=== PATIENT | male | born 1955 | race African-American/Black ===

== ENCOUNTER 2018-03-24 00:16 | Inpatient (IN) | payer MEDICARE, MEDICAID ==
[~2018-03-24] VITALS: Ht 185.4 cm; Wt 100.7 kg
[2018-03-24] VITALS (7 sets, daily range): BP systolic 112–129; BP diastolic 72–85
[~2018-03-24 00:16] MED LIST: Risperdal; ZOLOFT; [UNRECOGNIZED DRUG - CODE] PO; [UNRECOGNIZED DRUG - OTHER]
[2018-03-24] MEDS ORDERED: LORAZEPAM 2MG/ML CPJ IV ONE (00:30)
[2018-03-24 01:01] LABS: BG BASE EXCESS -2.7 mmol/L (-2.0-2.0); BG BILEVEL POS AIRWAY PRESSURE 15/5; BG CARBOXYHEMOGLOBIN 0.9 % (0.5-1.5); BG DEOXYHEMOGLOBIN 0.3 % (0.0-5.0); BG FRACTION INSPIRED OXYGEN 100; BG HCO3 ACT 23.5 mmol/L (22.0-26.0); BG METHEMOGLOBIN 0.5 % (0.0-1.5); BG OXYGEN SATURATION 99.7 % (92.0-98.5); BG OXYHEMOGLOBIN 98.3 % (94.0-97.0); BG PCO2 46.3 mmHg (35.0-45.0); BG PH 7.323 (7.350-7.450); BG PO2 360.1 mmHg (75.0-100.0); BG SAMPLE SITE LEFT RADIAL; BG TOTAL HEMOGLOBIN 13.2 g/dL (12.0-18.0); BG VENT MODE MASK - BIPAP; BG VENT RATE 20 set
[2018-03-24 02:07] LABS: BASOPHILS % 0.5 % (0.0-2.0); EOSINOPHILS % 0.9 % (0.0-5.0); HEMATOCRIT. 39.5 % (42.0-52.0); HEMOGLOBIN. 12.3 g/dL (14.0-18.0); MEAN CORPUSCULAR HEMOGLOBIN 22.5 pg (28.0-32.0); MEAN CORPUSCULAR VOLUME 72.4 fL (80.0-94.0); MEAN PLATELET VOLUME 8.1 fl (7.4-10.4); MONOCYTES % 5.5 % (2.0-8.0); NEUTROPHILS % 70.1 % (40.0-76.0); PLATELET 311 x1000/uL (130-400); RED BLOOD CELL COUNT 5.45 mill/uL (4.7-6.1); RED CELL DISTRIBUTION WIDTH 16.3 % (11.6-14.6)
[2018-03-24 02:13] LABS: PROTHROMBIN TIME 10.1 sec (9.1-11.1)
[2018-03-24 02:19] LABS: CHLORIDE 104 mEq/L (98-107)
[2018-03-24] MEDS ORDERED: FUROSEMIDE 40MG/4ML VIAL IVP ONE (02:45)
[2018-03-24 03:22] LABS: CLARITY URINE CLEAR (CLEAR); COLOR URINE YELLOW (YELLOW); KETONES URINE NEGATIVE (NEGATIVE); LEUKOCYTE ESTERASE URINE NEGATIVE (NEGATIVE); NITRITE URINE NEGATIVE (NEGATIVE); OCCULT BLOOD URINE NEGATIVE (NEGATIVE); PROTEIN URINE 3+ (NEGATIVE); SPECIFIC GRAVITY URINE 1.035 (1.005-1.030); UROBILINOGEN URINE 0.2 E.U./dL (0.2-1.0)
[2018-03-24] MEDS ORDERED: CLONIDINE 0.1MG TABLET PO PRN (09:30)
[2018-03-24] MEDS ORDERED: CLONIDINE 0.2MG TABLET PO PRN (09:30)
[2018-03-24] MEDS ORDERED: IPRATROPIUM/ALBUTEROL 0.5-3(2.5)MG/3ML NEB INH PRN (10:30)
[2018-03-24] MEDS ORDERED: LORAZEPAM 2MG/ML CPJ IV PRN (10:30)
[2018-03-24] MEDS ORDERED: ACETAMINOPHEN 325MG TABLET PO PRN (10:30)
[2018-03-24] MEDS ORDERED: ONDANSETRON HCL 4MG/2ML INJ IV PRN (10:30)
[2018-03-24] MEDS: FUROSEMIDE 40MG/4ML VIAL IVP SCH (11:19)
[2018-03-24] MEDS: POTASSIUM CHLORIDE 20MEQ TABLET SR PO SCH (11:19)
[2018-03-24] MEDS ORDERED: ENOXAPARIN 40MG/0.4ML SYR SUBCUT SCH (12:00)
[2018-03-24] MEDS ORDERED: VERAPAMIL HCL 2.5 MG/1 ML 2ML VIAL IV PRN (16:00)
[2018-03-24] MEDS ORDERED: VERAPAMIL HCL 2.5 MG/1 ML 2ML VIAL IV NR (17:15)
[2018-03-24] MEDS ORDERED: DEXTROSE 50% WATER 50ML SYRINGE IV PRN (17:15)
[2018-03-24] MEDS: INSULIN LISPRO 100 UNITS/ML SUBCUT SCH ×2 (17:54→21:49)
[2018-03-24] MEDS ORDERED: DIGOXIN 500MCG/2ML AMP IV NR (18:45)
[2018-03-24] MEDS: BLOOD SUGAR DIAGNOSTIC STRIP TEST SCH (21:11)
[2018-03-24] MEDS: DILTIAZEM HCL 60MG TABLET PO SCH (21:26)
[2018-03-24 22:44] LABS: *AMPHETAMINES SCREEN URINE NEGATIVE (NEGATIVE); *BARBITURATES SCREEN URINE NEGATIVE (NEGATIVE); *BENZODIAZEPINES SCREEN URINE NEGATIVE (NEGATIVE); *COCAINE SCREEN URINE NEGATIVE (NEGATIVE); CANNABINOID URINE SCREEN PRESUMTIVE POSITIVE (NEGATIVE); METHADONE URINE SCREEN NEGATIVE (NEGATIVE); OPIATES URINE SCREEN NEGATIVE (NEGATIVE); PHENCYCLIDINE URINE SCREEN NEGATIVE (NEGATIVE)
[2018-03-25] VITALS (15 sets, daily range): BP systolic 112–148; BP diastolic 54–97
[2018-03-25] MEDS: DILTIAZEM HCL 60MG TABLET PO SCH (06:44)
[2018-03-25] MEDS: BLOOD SUGAR DIAGNOSTIC STRIP TEST SCH ×4 (06:45→21:16)
[2018-03-25 07:29] LABS: BASOPHILS % 0.5 % (0.0-2.0); HEMATOCRIT. 37.6 % (42.0-52.0); HEMOGLOBIN. 12.1 g/dL (14.0-18.0); LYMPHOCYTES % 39.2 % (20.0-50.0); MEAN CORPUSCULAR VOLUME 71.6 fL (80.0-94.0); MEAN PLATELET VOLUME 8.2 fl (7.4-10.4); MONOCYTES % 8.8 % (2.0-8.0); NEUTROPHILS % 50.5 % (40.0-76.0); PLATELET 294 x1000/uL (130-400); RED BLOOD CELL COUNT 5.25 mill/uL (4.7-6.1); RED CELL DISTRIBUTION WIDTH 15.8 % (11.6-14.6)
[2018-03-25] MEDS: FUROSEMIDE 40MG/4ML VIAL IVP SCH ×2 (08:00→17:16)
[2018-03-25] MEDS: POTASSIUM CHLORIDE 20MEQ TABLET SR PO SCH ×2 (08:01→17:16)
[2018-03-25] MEDS: ENOXAPARIN 30MG/0.3ML SYR SUBCUT SCH ×2 (08:01→21:16)
[2018-03-25] MEDS: INSULIN LISPRO 100 UNITS/ML SUBCUT SCH ×4 (08:02→21:35)
[2018-03-25 08:17] LABS: CHLORIDE 103 mEq/L (98-107)
[2018-03-25 08:34] LABS: CREATINE KINASE 64 IU/L (39-308); CREATINE KINASE MB FRACTION < 1.0 ng/mL (0.5-3.6); HDL CHOLESTEROL 40 mg/dL (40-59); LDL CHOLESTEROL 102 mg/dL (5-100)
[2018-03-25] MEDS: CARVEDILOL 6.25 MG TABLET PO SCH ×2 (10:27→21:17)
[2018-03-25] MEDS: LOSARTAN POTASSIUM 25 MG TABLET PO SCH ×2 (10:27→21:17)
[2018-03-25] MEDS: ASPIRIN 81MG EC TABLET PO SCH (10:27)
[2018-03-26] VITALS (13 sets, daily range): BP systolic 94–145; BP diastolic 53–86
[2018-03-26] MEDS: BLOOD SUGAR DIAGNOSTIC STRIP TEST SCH ×4 (06:27→20:34)
[2018-03-26] MEDS: FUROSEMIDE 40MG/4ML VIAL IVP SCH (06:27)
[2018-03-26] MEDS: CARVEDILOL 6.25 MG TABLET PO SCH ×2 (08:31→21:00)
[2018-03-26] MEDS: INSULIN LISPRO 100 UNITS/ML SUBCUT SCH ×4 (08:31→20:54)
[2018-03-26] MEDS: LOSARTAN POTASSIUM 25 MG TABLET PO SCH ×2 (08:31→21:00)
[2018-03-26] MEDS: ASPIRIN 81MG EC TABLET PO SCH (08:31)
[2018-03-26] MEDS: ENOXAPARIN 30MG/0.3ML SYR SUBCUT SCH ×2 (08:36→20:56)
[2018-03-26] MEDS: POTASSIUM CHLORIDE 20MEQ TABLET SR PO SCH ×2 (08:36→16:53)
[2018-03-26 09:58] LABS: CREATINE KINASE 62 IU/L (39-308); CREATINE KINASE MB FRACTION < 1.0 ng/mL (0.5-3.6)
[2018-03-26] MEDS: FUROSEMIDE 40MG TABLET PO SCH (16:53)
[2018-03-27] VITALS (17 sets, daily range): BP systolic 98–143; BP diastolic 52–90
[2018-03-27] MEDS: BLOOD SUGAR DIAGNOSTIC STRIP TEST SCH ×2 (06:35→12:15)
[2018-03-27] MEDS: FUROSEMIDE 40MG TABLET PO SCH (06:35)
[2018-03-27 07:07] LABS: BASOPHILS % 0.5 % (0.0-2.0); EOSINOPHILS % 1.2 % (0.0-5.0); HEMATOCRIT. 41.6 % (42.0-52.0); HEMOGLOBIN. 13.5 g/dL (14.0-18.0); LYMPHOCYTES % 38.7 % (20.0-50.0); MEAN CORPUSCULAR HEMOGLOBIN 23.3 pg (28.0-32.0); MEAN CORPUSCULAR VOLUME 71.9 fL (80.0-94.0); MEAN PLATELET VOLUME 8.1 fl (7.4-10.4); MONOCYTES % 10.3 % (2.0-8.0); NEUTROPHILS % 49.3 % (40.0-76.0); PLATELET 324 x1000/uL (130-400); RED BLOOD CELL COUNT 5.79 mill/uL (4.7-6.1); RED CELL DISTRIBUTION WIDTH 15.9 % (11.6-14.6)
[2018-03-27 07:10] LABS: CHLORIDE 101 mEq/L (98-107)
[2018-03-27] MEDS: INSULIN LISPRO 100 UNITS/ML SUBCUT SCH ×2 (07:54→12:23)
[2018-03-27] MEDS: ASPIRIN 81MG EC TABLET PO SCH (08:58)
[2018-03-27] MEDS: CARVEDILOL 6.25 MG TABLET PO SCH (08:58)
[2018-03-27] MEDS: LOSARTAN POTASSIUM 25 MG TABLET PO SCH (08:58)
[2018-03-27] MEDS: POTASSIUM CHLORIDE 20MEQ TABLET SR PO SCH (08:58)
[2018-03-27] MEDS: ENOXAPARIN 30MG/0.3ML SYR SUBCUT SCH (10:06)
== END 2018-03-27 16:55 | disposition home or self-care (01) | DRG 291 ==
LOC: ER 00:16 → 3WST 02:53 → EDBEDREQTM 02:58 → EDBEDREQSVC 02:58 → EDBEDREQ 02:58 → ENRESERV 07:54
PROVIDERS: ADMIT Internal Medicine; ATTEND Internal Medicine
PROC: 5A09357 Assistance with Respiratory Ventilation, Less than 24 Consecutive Hours, Continuous Positive Airway Pressure (ICD-10-PCS; principal; 2018-03-24)
DX: I11.0 Hypertensive heart disease with heart failure (principal); J96.01 Acute respiratory failure with hypoxia; E87.2 Acidosis; E46 Unspecified protein-calorie malnutrition; I42.0 Dilated cardiomyopathy; F10.10 Alcohol abuse, uncomplicated; I50.9 Heart failure, unspecified; E11.9 Type 2 diabetes mellitus without complications; F17.200 Nicotine dependence, unspecified, uncomplicated; R74.0 Nonspecific elevation of levels of transaminase and lactic acid dehydrogenase [LDH]; I48.0 Paroxysmal atrial fibrillation; Z79.4 Long term (current) use of insulin; Z79.899 Other long term (current) drug therapy; Z68.29 Body mass index [BMI] 29.0-29.9, adult
CPT/HCPCS: 36415; 36600; 71045; 80048; 80061; 80305; 82375; 82550; 82553; 82805; 82962; 83036; 83605; 83735; 83880; 84443; 84484; 85379; 93005; 93306; 93970; 96374; 96375; 99291; J1160; J1650; J1815; J1940; J2060; J3490

== ENCOUNTER 2021-10-03 05:42 | Emergency (ER) | payer OTHER, MEDICAID ==
[~2021-10-03] VITALS: Ht 188 cm; Wt 112.6 kg
[2021-10-03 05:53] VITALS: BP 115/79
[2021-10-03] MEDS ORDERED: ACETAMINOPHEN 325MG TABLET PO ONE (06:15)
[2021-10-03] MEDS ORDERED: IBUP-2028 PO (07:17)
[2021-10-03] MEDS ORDERED: T3 PO (07:17)
== END 2021-10-03 07:28 | disposition home or self-care (01) ==
LOC: ER 05:42
DX: M54.31 Sciatica, right side (principal); E11.9 Type 2 diabetes mellitus without complications; I11.0 Hypertensive heart disease with heart failure; I50.9 Heart failure, unspecified; Z98.890 Other specified postprocedural states
CPT/HCPCS: 72100; 73502; 99284

== ENCOUNTER 2023-04-19 03:03 | Emergency (ER) | payer OTHER, MEDICAID ==
[~2023-04-19] VITALS: Ht 188 cm; Wt 109.0 kg
[~2023-04-19 03:03] MED LIST changes: +IBUP-2028 PO; +T3 PO
[2023-04-19 03:11] VITALS: TEMP 98.8; O2SAT 98
[2023-04-19 04:00] VITALS: BP 140/84; PULSE 65; RESP 16
[2023-04-19] MEDS ORDERED: KETOROLAC 60MG/2ML VIAL IM ONE (04:00)
[2023-04-19] MEDS ORDERED: CYCL5TAB MT (05:05)
== END 2023-04-19 05:20 | disposition home or self-care (01) ==
LOC: ER 03:03
DX: M54.41 Lumbago with sciatica, right side (principal); E11.9 Type 2 diabetes mellitus without complications; I11.0 Hypertensive heart disease with heart failure; I50.9 Heart failure, unspecified; Z90.49 Acquired absence of other specified parts of digestive tract
CPT/HCPCS: 99283; 72100; 96372; J1885